=== PATIENT | male | born 1960 | race Caucasian/White ===

== ENCOUNTER 2020-03-21 17:15 | Observation (INO) | payer MEDICARE, OTHER ==
[~2020-03-21] VITALS: Ht 182.9 cm; Wt 128.5 kg
[~2020-03-21 17:15] MED LIST: ALPR1TAB10; ALPR1TAB2 PO; AMLO5TAB10 PO; ASPI-143 PO; ATEN100T PO; BENA10TA55; BUPR300T92 PO; CARV12.5 PO; CITA40TA12 PO; CLIN300C3 PO; CYCL10TA2 PO; DAKINS SOLUTION; ENOX120D SQ; HYDR-2145 PO; HYDR-2765 PO; HYDR-3164 PO; IBUP200C; ISOS30TA4 PO; METF-154 PO; NITR0.4T24 SL; OXYC1TAB15 PO; POLY17PO29 PO; SULF1TAB24 PO; TAMS0.4C97 PO; WARF1TAB2 PO; WARF5TAB2 PO
[2020-03-21 17:54] LABS: BASO # 0.1 x10^3/uL (0.0-0.2); BASO % 1 % (0-3); EOS # 0.2 x10^3/uL (0.0-0.7); EOS % 3 % (0-3); HEMATOCRIT 41.4 % (39.0-53.0); HEMOGLOBIN 14.5 g/dL (13.0-17.5); LYMPH # 2.1 x10^3/uL (1.0-4.8); LYMPH % 26 % (24-48); MEAN CORPUSCULAR HEMOGLOBIN 31 pg (25-35); MEAN CORPUSCULAR HGB CONC 35 g/dL (31-37); MEAN CORPUSCULAR VOLUME 89 fL (79-100); MONO # 0.6 x10^3/uL (0.0-1.1); MONO % 8 % (0-9); NEUT % 62 % (31-73); PLATELET COUNT 133 x10^3/uL (140-400); RED BLOOD COUNT 4.66 x10^6/uL (4.30-5.70); RED CELL DISTRIBUTION WIDTH 13.5 % (11.5-14.5); WHITE BLOOD COUNT 8.1 x10^3/uL (4.0-11.0)
[2020-03-21 18:10] LABS: PROTHROMBIN TIME PATIENT 17.9 SEC (11.7-14.0)
[2020-03-21 18:13] LABS: ALBUMIN 3.4 g/dL (3.4-5.0); ALBUMIN/GLOBULIN RATIO 0.9 (1.0-1.7); CALCIUM 8.5 mg/dL (8.5-10.1); CREATININE 1.8 mg/dL (0.7-1.3); GFR 39.1; MAGNESIUM 1.9 mg/dL (1.8-2.4); TOTAL BILIRUBIN 0.4 mg/dL (0.2-1.0); TOTAL PROTEIN 7.3 g/dL (6.4-8.2)
--- NOTE | 2020-03-21 18:13 | PHYS DOC ---
Past Medical History Past Medical History: Diabetes-Type II, Other Additional Past Medical Histor: HX BLOOD CLOTS IN LUNGS, 2 CABG, GROIN ANERUY SM, SHINGLES Past Surgical History: Other Additional Past Surgical Histo: 2 CABG, GROIN ANEURYSM REPAIR, LITHOTRIPSY Smoking Status: Current Every Day Smoker Alcohol Use: None Drug Use: None General Adult EDM: Chief Complaint: chest pain HPI: HPI: Patient is a 59 year old male who was brought here by EMS from home due to chest pain. Patient has history of nonoperative coronary disease, he has hypertension and diabetes, peripheral arterial disease. He was told that he might have about 5-year to live about 5 years ago due to his heart condition. Patient continues to smoke. Patient denies any cough or fever, denies any recent exposure to anybody who tested positive for COVID-19. Patient was asleep today in a recliner. EMS said his house was very hot inside. His family had trouble waking him up, when he woke up , he was acting confused. Review of Systems: Review of Systems: Constitutional: Denies fever or chills. [] Eyes: Denies change in visual acuity. [] HENT: Denies nasal congestion or sore throat. [] Respiratory: Denies cough or shortness of breath. [] Cardiovascular: Positive for chest pain. GI: Denies abdominal pain, nausea, vomiting, bloody stools or diarrhea. [] : Denies dysuria. [] Musculoskeletal: Denies back pain or joint pain. [] Integument: Denies rash. [] Neurologic: Denies headache, focal weakness or sensory changes. [] Endocrine: Denies polyuria or polydipsia. [] Lymphatic: Denies swollen glands. [] Psychiatric: Denies depression or anxiety. [] Heart Score: HEART Score for Chest Pain: HEART Score for Chest Pain Response (Comments) Value History Moderately Suspicious [address] Depression 2 Age >45 - < 65 1 Risk Factors >3 Risk Factors or Hx CAD 2 Troponin < Normal Limit 0 Total 6 Risk Factors: Risk Factors: DM, Current or recent (<one month) smoker, HTN, HLP, family history of CAD, obesity. Risk Scores: Score 0 - 3: 2.5% MACE over next 6 weeks - Discharge Home Score 4 - 6: 20.3% MACE over next 6 weeks - Admit for Clinical Observation Score 7 - 10: 72.7% MACE over next 6 weeks - Early Invasive Strategies Allergies: Allergies: Allergies Coded Allergies Type Severity Reaction Last Updated Verified bacitracin Allergy Intermediate Itching 02/04/16 Yes bacitracin zinc Allergy Intermediate Itching 02/04/16 Yes neomycin sulfate Allergy Intermediate Itching 02/04/16 Yes polymyxin B Allergy Intermediate Itching 02/04/16 Yes Physical Exam: PE: Constitutional: Well developed, well nourished, no acute distress, non-toxic appearance. [] HENT: Normocephalic, atraumatic, bilateral external ears normal, oropharynx moist, no oral exudates, nose normal. [] Eyes: PERRLA, EOMI, conjunctiva normal, no discharge. [] Neck: Normal range of motion, no tenderness, supple, no stridor. [] Cardiovascular:Heart rate regular rhythm, no murmur [] Lungs & Thorax: Bilateral breath sounds clear to auscultation [] Abdomen: Bowel sounds normal, soft, no tenderness, no masses, no pulsatile masses. [] Skin: Warm, dry, no erythema, no rash. [] Back: No tenderness, no CVA tenderness. [] Extremities: No tenderness, no cyanosis, no clubbing, ROM intact, no edema. [] Neurologic: Alert and oriented X 3, normal motor function, normal sensory function, no focal deficits noted. [] Psychologic: Affect normal, judgement normal, mood normal. [] Current Patient Data: Labs: Laboratory Tests Test 03/21/20 17:25 White Blood Count 8.1 x10^3/uL (4.0-11.0) Red Blood Count 4.66 x10^6/uL (4.30-5.70) Hemoglobin 14.5 g/dL (13.0-17.5) Hematocrit 41.4 % (39.0-53.0) Mean Corpuscular Volume 89 fL (79-100) Mean Corpuscular Hemoglobin 31 pg (25-35) Mean Corpuscular Hemoglobin Concent 35 g/dL (31-37) Red Cell Distribution Width 13.5 % (11.5-14.5) Platelet Count 133 x10^3/uL (140-400) L Neutrophils (%) (Auto) 62 % (31-73) Lymphocytes (%) (Auto) 26 % (24-48) Monocytes (%) (Auto) 8 % (0-9) Eosinophils (%) (Auto) 3 % (0-3) Basophils (%) (Auto) 1 % (0-3) Neutrophils # (Auto) 5.0 x10^3/uL (1.8-7.7) Lymphocytes # (Auto) 2.1 x10^3/uL (1.0-4.8) Monocytes # (Auto) 0.6 x10^3/uL (0.0-1.1) Eosinophils # (Auto) 0.2 x10^3/uL (0.0-0.7) Basophils # (Auto) 0.1 x10^3/uL (0.0-0.2) Laboratory Tests 03/21/20 17:25 Vital Signs: Vital Signs Date Time Temp Pulse Resp B/P (MAP) Pulse Ox O2 Delivery O2 Flow Rate FiO2 03/21/20 17:27 97.9 69 16 123/79 (94) 96 Room Air 97.9 EKG: EKG: EKG was done. 1721, heart rate of 73 bpm, right bundle branch block, no ST segment elevation. Radiology/Procedures: Radiology/Procedures: [][facility] [address] [place] [address] IMAGING REPORT Signed PATIENT: MERI HARP ACCOUNT: [id number] : 1960 LOCATION: ER AGE: 59 SEX: M EXAM STATUS: PRE ER ORD. PHYSICIAN: SIDDHARTH GUILLEN DO REASON: CHEST PAIN PROCEDURE: PORTABLE CHEST 1V PORTABLE CHEST 1V Clinical History: Reason: CHEST PAIN / Spl. Instructions: / History: Technique: AP view of the chest was obtained at 03/21/2020 5:41 PM. Comparison: March 30, 2016. Findings: The cardiomediastinal silhouette is normal. The pulmonary vasculature is normal. Median sternotomy wires are again seen. There is perihilar and left basilar linear opacities which were seen previously could be discoid atelectasis or scar. Impression: Stable appearance of the chest. Electronically signed by: Claudia Corea III, MD (03/21/2020 6:12 PM) [id number] DICTATED and SIGNED BY: CLAUDIA COREA III, MD DATE: 03/21/201811 Course & Med Decision Making: Course & Med Decision Making Pertinent Labs and Imaging studies reviewed. (See chart for details) Patient is a 59-year-old male who was evaluated in the ER due to chest pain. Patient had high risk of having coronary disease, will admit him to hospital for observation. Dragon Disclaimer: Dragon Disclaimer: This electronic medical record was generated, in whole or in part, using a voice recognition dictation system. Departure Departure Impression: Primary Impression: Chest pain Disposition: ADMITTED INPATIENT Admitting Physician: Stephanie Parada Condition: STABLE Referrals: STEPHANIE PARADA MD (PCP) Justicifation of Admission Dx: Justifications for Admission: Justification of Admission Dx: N/A SIDDHARTH GUILLEN DO Mar 21, 2020 18:12
[2020-03-21] MEDS ORDERED: ONDANSETRON PF 4 MG/2 ML VIAL. IV PRN (18:30)
[2020-03-21] MEDS ORDERED: MORPHINE SULFATE 2 MG/ML VIAL. IV PRN (18:30)
[2020-03-21 20:59] VITALS: BP 117/68
[2020-03-21] MEDS ORDERED: OXYC1TAB19 PO (21:42)
[2020-03-21] MEDS ORDERED: IBUP-1670 PO (21:42)
[2020-03-21] MEDS ORDERED: ACET325T9 PO (21:42)
[2020-03-21] MEDS ORDERED: DIPH25CA58 PO (21:42)
[2020-03-21] MEDS ORDERED: NITROGLYCERIN SUBLINGUAL 0.4 MG BOTTLE OF 25. SL PRN (22:45)
[2020-03-21] MEDS ORDERED: IBUPROFEN 200 MG TABLET. PO PRN (22:45)
[2020-03-21] MEDS ORDERED: oxyCODONE/APAP 7.5/325 1 TAB TABLET PO PRN (22:45)
[2020-03-21] MEDS: ALPRAZolam 1 MG TABLET PO SCH (23:00)
[2020-03-21] MEDS ORDERED: diphenhydrAMINE HCL 25 MG CAPSULE PO SCH (23:00)
[2020-03-21] MEDS ORDERED: CYCLOBENZAPRINE 10 MG TABLET. PO SCH (23:00)
[2020-03-21] MEDS ORDERED: POTASSIUM CHLORIDE 10 MEQ TABLET.ER. PO ONE (23:00)
[2020-03-21 23:25] VITALS: BP 114/60
[2020-03-22] MEDS ORDERED: WARFARIN 2 MG TABLET. PO SCH
[2020-03-22] MEDS: ACETAMINOPHEN 325 MG TABLET. PO PRN ×2 (02:06→09:50)
[2020-03-22 03:55] VITALS: BP 113/67
[2020-03-22 07:00] VITALS: BP 108/69
[2020-03-22] MEDS: ALPRAZolam 1 MG TABLET PO SCH ×2 (08:22→14:05)
[2020-03-22] MEDS: POTASSIUM CHLORIDE 10 MEQ TABLET.ER. PO SCH ×2 (08:24→12:27)
[2020-03-22] MEDS ORDERED: buPROPion XL 150 MG TAB.ER.24H. PO SCH (09:00)
[2020-03-22] MEDS ORDERED: CITALOPRAM 20 MG TABLET. PO SCH (09:00)
[2020-03-22] MEDS ORDERED: ASPIRIN 325 MG TABLET PO SCH (09:00)
[2020-03-22] MEDS ORDERED: ISOSORBIDE MONONITRATE ER 30 MG TAB.ER.24H PO SCH (09:00)
[2020-03-22] MEDS ORDERED: hydroCHLOROthiazide 25 MG TABLET PO SCH (09:00)
--- NOTE | 2020-03-22 09:28 | PDOC ---
Provider Note Provider Note [id number] Justicifation of Admission Dx: Justifications for Admission: Justification of Admission Dx: N/A Angina: Unstable Variant STEPHANIE PARADA MD Mar 22, 2020 09:28
[2020-03-22] MEDS ORDERED: POTASSIUM CL 40MEQ D5-0.45NACL 1,000 ML IV ONE (09:45)
--- NOTE | 2020-03-22 09:54 | SSS ---
ADMIT DATE: 03/22/2020 TWENTY-THREE HOUR NOTE HOSPITAL SUMMARY: A 59-year-old white male with known chronic severe coronary artery disease, peripheral arterial disease, chronic pain disorder and multiple other medical problems including continued tobacco abuse came in with some increasing fatigue and sleepiness, which has been going on for several weeks. He had some mild chest pain as well. His potassium was mildly low at 3.0, BUN elevated at 63, creatinine 1.8. Troponins x3 were normal and a TSH is pending. His INR was 1.5 as he takes warfarin for chronic previous pulmonary emboli. He was given oral potassium. He is alert and awake with no further chest pain and is comfortable to be followed as an outpatient. We discussed the likely need for sleep study as he is high risk for sleep apnea and we will change his meds by stopping his Flexeril and his Benadryl, which is causing sleepiness and taken him off hydrochlorothiazide for a few days to allow his renal function to improve. Prognosis is guarded because of continued noncompliance with proper lifestyle and severe vascular disease diffusely. STEPHANIE PARADA MD DR: GORDON/gigi JOB#: [id number] / [id number]
[2020-03-22 10:37] VITALS: BP 90/54
--- NOTE | 2020-03-22 10:44 | SSS ---
ADMIT DATE: 03/22/2020 ADDENDUM Laboratory review showed his BUN 63, creatinine 1.8 with unknown baseline. Potassium was low at 3.0 and CBC normal with hemoglobin of 14. He will be given a liter of IV fluids with potassium to rehydrate. We will have him stop his Flexeril and Benadryl and hydrochlorothiazide that he takes, that could contribute to dehydration, hypokalemia and drowsiness and fatigue. We will follow with electrolytes at his office visit. If his blood pressure remains on the low side, we may have to stop his benazepril as well. Should his drowsiness not improve off medications, then an outpatient sleep study certainly will be considered. STEPHANIE PARADA MD DR: GORDON/nts JOB#: [id number] / [id number]
--- NOTE | 2020-03-22 15:09 | NUR ---
Discharge Note: MERI HARP Discharge instructions and discharge home medications reviewed with Patient and a copy given. All questions have been answered and understanding verbalized. The following instructions and handouts were given: Patient education regarding medication and follow ups. Discontinued lines and drains: IV removed per protocol. Patient discharged home. Picked up by family member.
[2020-03-22] MEDS ORDERED: WARFARIN 4 MG TABLET. PO SCH (16:00)
--- NOTE | 2020-03-23 04:31 | EKG ---
[facility] [address] [place] [address] Test Date: 2020-03-21 Test Time: 17:21:28 Pat Name: MERI HARP Department: Room: 206 1 Gender: M Pediatric Intensive Physician: : [id number] Requested By: SIDDHARTH GUILLEN Order Number: [id number] Reading MD: Kendall Ybarra MD Measurements Intervals [place] Rate: 73 P: 43 TN: 188 QRS: -86 QRSD: 168 T: 38 QT: 456 QTc: 507 Interpretive Statements SINUS RHYTHM ABNORMAL LEFT AXIS DEVIATION NON SPECIFIC INTRAVENTRICULAR BLOCK RVH WITH REPOLARIZATION ABNORMALITY QRS(T) CONTOUR ABNORMALITY CONSISTENT WITH ANTEROLATERAL INFARCT AGE UNDETERMINED CONSISTENT WITH INFERIOR INFARCT PROBABLY OLD ABNORMAL ECG Electronically Signed On 03-27-2020 11:13:44 CDT by Kendall Ybarra MD
== END 2020-03-22 15:00 | disposition home or self-care (01) ==
LOC: ER 17:15 → 2 NORTH 18:30
PROVIDERS: ADMIT Family Medicine; ATTEND Family Medicine
DX: R07.9 Chest pain, unspecified (principal); E87.6 Hypokalemia; F17.200 Nicotine dependence, unspecified, uncomplicated; I10 Essential (primary) hypertension; I25.10 Atherosclerotic heart disease of native coronary artery without angina pectoris; E11.9 Type 2 diabetes mellitus without complications; Z95.1 Presence of aortocoronary bypass graft
CPT/HCPCS: 36415; 71045; 80053; 83690; 83735; 83880; 84443; 84484; 85025; 85610; 85730; 93005; 96365; 96366; 99285; G0378; J3480; G0379